=== PATIENT | male | born 1985 | race Caucasian/White ===

== ENCOUNTER 2018-12-25 15:21 | Emergency (ER) | payer MEDICAID ==
[~2018-12-25] VITALS: Ht 177.8 cm; Wt 79.4 kg
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
[2018-12-25] MEDS ORDERED: CEFTRIAXONE 1GM BAG (ER ONLY) 1 GM/50 ML PIGGYBACK IV ONE (15:30)
[2018-12-25] MEDS ORDERED: ONDANSETRON HCL/PF 4 MG/2 ML VIAL IV ONE (15:30)
[2018-12-25] MEDS ORDERED: IV NS 0.9% 1,000 ML BAG IV ONE (15:30)
[2018-12-25] MEDS ORDERED: MORPHINE SULFATE INJ 4 MG/ML DISP.SYRIN IV ONE (15:30)
[2018-12-25] MEDS ORDERED: ONDANSETRON HCL/PF 4 MG/2 ML VIAL ONE (15:34)
[2018-12-25] MEDS ORDERED: MORPHINE SULFATE INJ 4 MG/ML DISP.SYRIN ONE (15:34)
--- NOTE | 2018-12-25 15:52 | NUR ---
CALLED [facility] WITH [facility], PRESENTED PT, TRANSFERRED CALL TO , FAXED FACESHEET TO [phone]
--- NOTE | 2018-12-25 16:12 | NUR ---
RECEIVED CALL FROM CRISTINA WITH [facility], NO BEDS AVAILABLE AT [facility], [facility], OR [facility] AT THIS TIME.
[2018-12-25] MEDS ORDERED: CEFTRIAXONE 1GM BAG (ER ONLY) 50 ML IV ONE (16:37)
[2018-12-25] MEDS ORDERED: LIDOCAINE 2%-EPI 1:100,000 30 ML VIAL TP ONE (17:00)
[2018-12-25] MEDS ORDERED: LIDOCAINE 2%-EPI 1:100,000 30 ML VIAL ONE (17:04)
--- NOTE | 2018-12-25 20:36 | NUR ---
Patient discharged to home in stable condition. Written and verbal after care instructions given. Patient verbalizes understanding of instruction. IV removed. Catheter intact and site benign. Pressure and 4x4 applied to site. No bleeding noted.
[2018-12-25 20:54] VITALS: BP 139/75
== END 2018-12-25 20:55 | disposition home or self-care (01) ==
LOC: ER 15:24
DX: S01.121A Laceration with foreign body of right eyelid and periocular area, initial encounter (principal); S01.421A Laceration with foreign body of right cheek and temporomandibular area, initial encounter; S01.321A Laceration with foreign body of right ear, initial encounter; S09.8XXA Other specified injuries of head, initial encounter; R51 Headache; V19.9XXA Pedal cyclist (driver) (passenger) injured in unspecified traffic accident, initial encounter; Y93.89 Activity, other specified; Y92.89 Other specified places as the place of occurrence of the external cause; Y99.8 Other external cause status
CPT/HCPCS: 12016; 70450; 70486; 96365; 96375; 99285; J0696; J2270; J2405; J3490